=== PATIENT | female | born 2000 | race Caucasian/White ===

== ENCOUNTER 2024-07-05 05:23 | Emergency (ER) | payer BC, SELFPAY ==
[2024-07-05 03:25] VITALS: PULSE 74; RESP 18; O2SAT 95
[2024-07-05 03:28] VITALS: BP 113/81; PULSE 86; RESP 18; O2SAT 98
--- NOTE | 2024-07-05 03:29 | XR_ITS ---
Examination: CT cervical spine without contrast 2-D sagittal reconstructions 2-D coronal reconstructions 3-D reconstructions. Exam date and time:July 05, 2024 0529 hours INDICATIONS: Altered mental status today, patient fell with injury to the neck, neck pain CTDI:vol (mGy) 7. DLP: (mGycm) 132 Technique: Multiple 2 mm axial sections of the cervical spine have been obtained. The coronal and sagittal reconstructions have been obtained. 3-D reconstructions have been obtained. Low dose protocols were performed. One or more of the following dose reduction techniques were used; automated exposure control, adjustment of the mA and/or KV according to patient size, use of iterative reconstruction technique. Findings: Axial sections demonstrate intact base of the skull. C1 exhibit satisfactory relationship to the odontoid. No acute cervical vertebral body fracture seen. Alignment posterior spinous processes satisfactory. Impression: No acute cervical fracture.
--- NOTE | 2024-07-05 03:29 | XR_ITS ---
Examination: CT chest, without intravenous contrast. CT abdomen, without intravenous contrast. CT pelvis, without intravenous contrast. 2-D sagittal and coronal reconstructions. 3-D reconstructions. Date and time of exam:July 05, 2024 0530 hours INDICATIONS: Patient fell today with injury to the chest and abdomen, chest pain abdomen pain CTDI vol (mgy) 5. DLP (MGycm)382 Technique: Multiple CT images, 3.0 mm slice thickness, obtained chest, abdomen, pelvis, with the high-resolution 64 slice scanner.. Sagittal and coronal 2-D reconstructions are obtained. 3-D reconstructions Low dose protocols were performed. One or more of the following dose reduction techniques were used; automated exposure control, adjustment of the mA and/or KV according to patient size, use of iterative reconstruction technique. Findings: The thoracic aorta pulmonary arteries intact No hemopericardium No pneumothorax pulmonary contusion or hemothorax Sternum thoracic lumbar vertebral bodies and sacral segments intact Ribs intact No liver splenic or renal laceration Liver and spleen intact no free blood in the abdomen No gallstones Negative for pneumoperitoneum Normal appendix Distended urinary bladder No pelvic mass Hips bones of the pelvis intact IMPRESSION: Thoracic aorta pulmonary arteries intact No hemopericardium, pneumothorax, pulmonary contusion or hemothorax No abdominal parenchymal laceration Abdominal aorta intact No free blood in the abdomen or pelvis. Osseous structures appear intact
--- NOTE | 2024-07-05 03:29 | XR_ITS ---
Examination: CT brain head without contrast. 2-D sagittal coronal reconstructions Date and time of exam:July 05, 2024 and 0529 hours INDICATIONS: Altered mental status today CTDI: vol (mGy):48.1 DLP: (mGycm):892 Technique: Multiple CT axial sections of the brain have been obtained, 5 mm slice thickness. Contrast has not been administered. 2-D sagittal, coronal reconstructions have been obtained Low dose protocols were performed. One or more of the following dose reduction techniques were used; automated exposure control, adjustment of the mA and/or KV according to patient size, use of iterative reconstruction technique. Findings: No significant ventricular enlargement. Intra-axial or extra-axial hemorrhage density is not seen. No mass effect or midline shift Basal cisterns are not remarkable. Fourth ventricle is midline. Cranial vault intact. Impression: Negative for acute hemorrhage, mass effect or midline shift
--- NOTE | 2024-07-05 03:29 | EKG_ITS ---
[facility] Test Date: 2024-07-05 Pat Name: BJ [place] Department: Room: - Gender: Female Auditing Coder: : 2000 Requested By: Meir Owens Order Number: [id number] Reading MD: Meir Owens Measurements Intervals [place] Rate: 75 P: 54 DC: 164 QRS: 72 QRSD: 89 T: 74 QT: 394 QTc: 441 Interpretive Statements SINUS RHYTHM POSSIBLE ANTERIOR MYOCARDIAL INFARCTION , OF INDETERMINATE AGE [30 ms Q WAVE IN V3/V4, OR R < 0.2 mV IN V4] No previous ECG available for comparison /store/S0/[id number].pdf
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
[2024-07-05 03:43] LABS: Basophils % (Auto) 1 % (0-2.5); Eosinophils # (Auto) 0.1 Thou/mm3 (0.0-0.5); Eosinophils % (Auto) 2 % (0-10); Hematocrit 41.3 % (36.0-46.0); Hemoglobin 14.5 g/dL (12.0-16.0); Immature Granulocytes % (Auto) 0 % (0-0); Immature Granulocytes Auto 0.01 Thou/mm3 (0.00-0.00); Lymphocytes # (Auto) 1.8 Thou/mm3 (1.0-4.8); Lymphocytes % (Auto) 23 % (10-50); Mean Corpuscular HGB Conc 35.1 g/dl (31.0-37.0); Mean Corpuscular Hemoglobin 30.9 pg (25.0-35.0); Mean Corpuscular Volume 88 fL (80-100); Monocytes # (Auto) 0.5 Thou/mm3 (0.0-0.8); Monocytes % (Auto) 6 % (0-12); Neutrophils # (Auto) 5.5 Thou/mm3 (1.8-7.7); Neutrophils % (Auto) 69 % (37-80); Nucleated Red Blood Cell % 0 /100 WBC (0); Platelet Count 251 Thou/mm3 (140-440); RDW Standard Deviation 41.9 fL (36.4-46.3); Red Blood Count 4.69 Miln/mm3 (4.00-5.20)
[2024-07-05] MEDS: ONDANSETRON INJ 2 MG/ML INJ 2 ML 4 MG IV (03:54)
[2024-07-05] MEDS: SODIUM CHLORIDE 0.9% 1000 ML 1,000 ML 999 ML IV ×2 (03:54→05:11)
[2024-07-05 04:02] LABS: Collection Type, Urine Clean Catch; RBC,Urine 0 /hpf (0-3); Squamous Epithelial Cell,Urine 0 /hpf (0-5)
[2024-07-05 04:02] LABS: Base Excess -3 (-3-3); HCO3 23 mEq/L (20-26); Inspired Oxygen, FIO2 21 %; O2 Saturation 97 % (91-98); PCO2 42 mmHg (32.0-48.0); PO2 95 mmHg (83-108); pH, Arterial 7.34 (7.35-7.45)
[2024-07-05 04:07] LABS: Ammonia < 10 uMol/L (11-32)
[2024-07-05 04:08] LABS: Bilirubin,Urine Negative (Negative); Blood,Urine Negative (Negative); Clarity,Urine Clear (Clear/Hazy); Color,Urine Colorless (Lt Yel-Yel); Culture Indicated,Urine Not Indicated; Glucose, Urine Negative (Negative); Ketones,Urine Negative (Negative); Leukocyte Esterase,Urine Negative (Negative); Nitrite,Urine Negative (Negative); PH,Urine 5.5 (5.0-7.0); Protein,Urine Negative (Neg - Trace); Specific Gravity,Urine 1.004 (1.001-1.035); Urobilinogen,Urine Negative mg/dL (0.0-1.0); WBC,Urine < 1 /hpf (0-5)
[2024-07-05 04:09] LABS: Puncture Site Left Radial
[2024-07-05 04:10] LABS: Allen Test Performed/OK
[2024-07-05 04:13] LABS: Acetaminophen < 2.0 mcg/mL (10.0-20.0); Alanine Aminotransferase 19 U/L (10-49); Albumin/Globulin Ratio 2.3 (1.2-2.2); Alcohol, Blood Medical 362.9 mg/dL (0-10.0); Alkaline Phosphatase 72 U/L (46-116); Anion Gap 8 (7-16); Aspartate Amino Transferase 21 U/L (0-34); BUN/Creatinine Ratio 11 Ratio (12-20); Bilirubin,Total 0.4 mg/dL (0.3-1.2); Blood Urea Nitrogen 8 mg/dL (9-23); Calcium 8.7 mg/dL (8.3-10.6); Calcium (Corrected) 8.7 mg/dL (8.5-10.1); Carbon Dioxide 23.8 mMol/L (20.0-31.0); Chloride 113 mMol/L (98-107); Creatine Kinase 84 U/L (34-171); Creatinine (Component) 0.7 mg/dL (0.6-1.3); Free T4 (Free Thyroxine) 1.26 ng/dL (0.89-1.76); Globulin 2.2 gm/dL (2.3-3.5); Glucose 95 mg/dL (74-106); Magnesium 2.2 mg/dL (1.6-2.6); Osmolality,Calculated 287 (275-295); Potassium 4.2 mMol/L (3.4-5.1); Sodium 145 mMol/L (136-145); Total Protein 7.2 gm/dL (5.7-8.2); Troponin I < 0.002 ng/mL (0.0-0.045); eGFR > 60 See Note
[2024-07-05 04:20] LABS: Partial Thromboplastin Time 25.3 Seconds (22.0-36.0); Prothrombin Time 10.9 Seconds (9.0-12.2)
[2024-07-05 04:20] LABS: HCG Qualitative,Urine Negative
[2024-07-05 04:22] LABS: Amphetamine/Methamp Scrn,U Negative (Negative); Barbiturate Screen,Urine Negative (Negative); Benzodiazepines Screen,Urine Negative (Negative); Benzoylecgonine Screen, Ur Negative (Negative); Fentanyl Screen,Urine Negative (Negative); Opiate Screen,Urine Negative (Negative); THC Screen,Urine Positive (Negative)
[2024-07-05 04:23] LABS: HCG,Qualitative Serum Negative
[2024-07-05 05:10] VITALS: BMI 19.3
[2024-07-05 06:07] VITALS: BP 106/70; PULSE 66; RESP 16; O2SAT 100
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
[2024-07-05 07:15] VITALS: BP 91/53; PULSE 67; RESP 19; TEMP 36.1; O2SAT 96
--- NOTE | 2024-07-05 07:15 | PC.NURSE ---
REPORT RECIEVED AND CARE ASSUMED. PT SLEEPING AND DOES NOT MOVE WHILE B/P CUFF ADJUSTED. WILL MONITOR. PER REPORT PT VERY ALTERED UPON ARRIVAL AND THEN BECAME GSC 15 AFTER 2 LITERS FLUIDS
[2024-07-05 09:00] VITALS: BP 103/62; PULSE 81; RESP 18; O2SAT 99
--- NOTE | 2024-07-05 09:08 | PC.NURSE ---
LIGHTS IN ROOM TURNED ON TO HELP GET PT TO WAKE UP. PT IMMEDIATELY TURNED TO SIDE AFTER LIGHTS PUT ON. WILL CONTINUE TO MONITOR
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
[2024-07-05 10:00] VITALS: BP 112/63; PULSE 94; RESP 18; O2SAT 95
--- NOTE | 2024-07-05 10:15 | PC.NURSE ---
FEMALE VISITOR NOW WITH PT. PT INFORMED THAT MD AWARE SHE IS AWAKE AND WILL BE IN TO TALK WITH HER SOON POSSIBLE.
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
--- NOTE | 2024-07-05 13:14 | PRELIM_ITS ---
CT scan of the chest, abdomen and pelvis without intravenous contrast (axial sections with sagittal and coronal reformats) July 05, 2024 at 0533 hours Clinical History: Fall. Comparison: No prior study is available for comparison at the time of interpretation. Findings: CHEST: The lungs are clear. No evidence of pleural effusion or pneumothorax. There is no mediastinal collection on this noncontrast study. The thoracic aorta is normal in caliber. There is no pericardial effusion.The mediastinum demonstrates no evidence of mass or lymphadenopathy. No fracture is seen. There is a bone island in the left humeral head. CT ABDOMEN AND PELVIS: The liver, gallbladder, pancreas, spleen, kidneys and adrenals are unremarkable on this noncontrast study. No evidence of bowel obstruction. The appendix is within normal limits (images [id number], series 2). There is no mesenteric or retroperitoneal adenopathy. The urinary bladder is distended. A few phleboliths are present in the pelvis. There is no free fluid or free air. There is no fracture. Impression: No visceral or bony injury to the chest, abdomen or pelvis on this noncontrast study. Report Electronically Signed By: Mindi Rothman 07/05/2024 1:13:30 PM [EST]
== END 2024-07-05 11:58 | disposition home or self-care (01) ==
PROVIDERS: Emergency Medicine; Emergency Provider Family Medicine
DX: F10.929 Alcohol use, unspecified with intoxication, unspecified (principal); S19.9XXA Unspecified injury of neck, initial encounter; S29.9XXA Unspecified injury of thorax, initial encounter; S39.91XA Unspecified injury of abdomen, initial encounter; R94.31 Abnormal electrocardiogram [ECG] [EKG]; W19.XXXA Unspecified fall, initial encounter; Y90.8 Blood alcohol level of 240 mg/100 ml or more
CPT/HCPCS: 51701; 36415; 36600; 70450; 71250; 72125; 74176; 80053; 80307; 80320; 80329; 81001; 81025; 82140; 82550; 82803; 83735; 84439; 84443; 84484; 84703; 85025; 85610; 85730; 93005; 96361; 96374; 99284; J2405; J7030; G0480